=== PATIENT | female | born 1995 ===

== ENCOUNTER 2017-03-26 23:10 | Emergency (ER) | payer MEDICAID ==
[2017-03-26 23:24] VITALS: BP 112/69; PULSE 70; TEMP 98.1; O2SAT 100
--- NOTE | 2017-03-27 00:23 | C.PDOC ---
History Of Present Illness A 21 year old female presents to the emergency room with complaints of throat tightness since yesterday. Patient reports that she felt wheezing yesterday which resolved today. Patient attributes symptoms to eating almonds. Patient admits to having a history of allergies to almonds, but notes that the reaction is "not that bad." Patient took Loratadine today. Patient denies any shortness of breath, history of similar symptoms, rash, tongue swelling, lip swelling, or any other complaints. Time Seen by Provider: 03/26/17 23:33 Chief Complaint (Nursing): ENT Problem History Per: Patient History/Exam Limitations: None Onset/Duration Of Symptoms: Days (1) Current Symptoms Are (Timing): Still Present Quality (Ear): denies: Pain W/Touch, Redness, Swelling, Discharge, Foreign Body Quality (Mouth/Throat): Other (Throat tightness). denies: Tenderness, Swelling , Redness, Drainage Symptoms Have Been: Continuous Severity: Mild Past Medical History Reviewed: Historical Data, Nursing Documentation, Vital Signs Vital Signs: Last Vital Signs Temp 98.1 F 03/26/17 23:19 Pulse 70 03/26/17 23:19 Resp 20 03/27/17 01:01 BP 112/69 03/26/17 23:19 Pulse Ox 100 03/27/17 02:49 Family History: States: No Known Family Hx - Social History Hx Alcohol Use: No Hx Substance Use: No - Immunization History Hx Influenza Vaccination: No Hx Pneumococcal Vaccination: No Review Of Systems Except As Marked, All Systems Reviewed And Found Negative. Constitutional: Negative for: Fever, Chills ENT: Positive for: Other (Throat tightness). Negative for: Throat Pain Respiratory: Positive for: Wheezing (Yesterday. Resolved today.) Gastrointestinal: Negative for: Nausea, Vomiting, Diarrhea Skin: Negative for: Rash Physical Exam - Physical Exam Appears: Well, Non-toxic, No Acute Distress Skin: Normal Color, Warm, Dry, No Rash Head: Atraumatic, Normacephalic, No Swelling Eye(s): bilateral: Normal Inspection, PERRL, EOMI Ear(s): Bilateral: Normal Nose: Normal, No Discharge, No Tenderness Oral Mucosa: Moist Tongue: Normal Appearing, No Swelling Lips: Normal Appearing, No Swelling Throat: Normal, No Erythema, No Exudate Neck: Normal ROM, No Midline Cervical Tenderness, No Paracervical Tenderness, Supple Chest: Symmetrical, No Deformity, No Tenderness Cardiovascular: Rhythm Regular Respiratory: Normal Breath Sounds, No Rales, No Rhonchi, No Wheezing Gastrointestinal/Abdominal: Soft, No Tenderness, No Guarding, No Rebound Back: No CVA Tenderness, No Vertebral Tenderness Extremity: Normal ROM, No Tenderness Neurological/Psych: Oriented x3, Normal Speech, Normal Cognition ED Course And Treatment O2 Sat by Pulse Oximetry: 100 - Other Rad Soft Tissue X-ray X-Ray: Interpreted by Me, Viewed By Me Interpretation: NAD Progress Note: Patient is tolerating po. Case discussed with Dr. Lopez, who evaluated the X-ray and agrees with plan and discharge. On reassessment, patient is resting comfortably with no wheezing, chest pain, or retractions. Oxygen saturation and breath sounds have improved. Patient is alert and oriented x 3. Patient was advised to follow up with physician/clinic in 1-2 days and return to ED if symptoms worsen or persist. Disposition - Disposition Disposition: HOME/ ROUTINE Disposition Time: 00:22 Condition: STABLE Additional Instructions: Follow up with your primary medical doctor or clinic in 2-5 days for further evaluation. Take medications as prescribed. Return to the emergency department at any time if symptoms persist or worsen. Prescriptions: DiphenhydrAMINE [Benadryl] 25 mg PO Q6 #20 cap Epinephrine HCl [Epipen Auto-Injector] 0.3 mg IM ONCE PRN #1 unit PRN Reason: Anaphylaxis predniSONE [Prednisone] 40 mg PO DAILY #8 tab Instructions: General Allergic Reaction (ED) - Clinical Impression Clinical Impression: Allergic reaction - Scribe Statement The provider has reviewed the documentation as recorded by the Hamzah Aguayo Provider Scribe Attestation: All medical record entries made by the Ivetibkeshia were at my direction and personally dictated by me. I have reviewed the chart and agree that the record accurately reflects my personal performance of the history, physical exam, medical decision making, and the department course for this patient. I have also personally directed, reviewed, and agree with the discharge instructions and disposition.
[2017-03-27 01:02] VITALS: RESP 20
--- NOTE | 2017-03-27 08:23 | RAD ---
PROCEDURE: Radiographs of the neck (soft tissue). HISTORY: tightness COMPARISON: None. TECHNIQUE: Frontal and Lateral Radiographs of the neck, optimized for soft tissue visualization. FINDINGS: SOFT TISSUES: Unremarkable. No radiopaque foreign body seen. CERVICAL SPINE: Grossly unremarkable. OTHER FINDINGS: None. IMPRESSION: Unremarkable radiographs of the soft tissues of the neck.
== END 2017-03-27 01:01 | disposition home or self-care (01) ==
LOC: C.ER 23:10
DX: T78.40XA Allergy, unspecified, initial encounter (principal)

== ENCOUNTER 2018-06-24 17:24 | Emergency (ER) | payer MEDICAID, OTHER ==
[2018-06-24 17:34] VITALS: BMI 22.1
[2018-06-24 17:36] VITALS: BP 106/69; PULSE 83; RESP 18; TEMP 98.3; O2SAT 100
--- NOTE | 2018-06-24 17:55 | C.PDOC ---
History Of Present Illness 23-year-old female presents to the ED complaining of cloudy urine and urinary frequency for the past 6 days. Patient reports she is starting to develop back pain as well. She bought some urine test strips to test for UTI and the result was positive, prompting her to come to the ED for treatment. She felt feverish this morning and took 1 dose of aspirin. Patient denies prior history of UTIs. She denies any vaginal discharge, abdominal pain, nausea, vomiting, diarrhea, or hematuria. LMP was 06/01/18. Time Seen by Provider: 06/24/18 17:41 Chief Complaint (Nursing): Female Genitourinary History Per: Patient History/Exam Limitations: no limitations Onset/Duration Of Symptoms: Days Current Symptoms Are (Timing): Still Present Associated Symptoms: Urinary Symptoms Past Medical History Reviewed: Historical Data, Nursing Documentation, Vital Signs Vital Signs: Last Vital Signs Temp 98.3 F 06/24/18 17:34 Pulse 83 06/24/18 17:34 Resp 18 06/24/18 18:50 BP 106/69 06/24/18 17:34 Pulse Ox 100 06/24/18 18:40 - Medical History PMH: No Chronic Diseases Surgical History: No Surg Hx Family History: States: No Known Family Hx - Social History Hx Alcohol Use: No Hx Substance Use: No - Immunization History Hx Tetanus Toxoid Vaccination: Yes Hx Influenza Vaccination: Yes Hx Pneumococcal Vaccination: Yes Review Of Systems Constitutional: Positive for: Fever (subjective). Negative for: Chills Gastrointestinal: Negative for: Nausea, Vomiting, Abdominal Pain Genitourinary: Positive for: Frequency, Other (cloudy urine). Negative for: Dysuria, Incontinence, Hematuria, Vaginal Discharge, Vaginal Bleeding Musculoskeletal: Positive for: Back Pain Physical Exam - Physical Exam Appears: Well, Non-toxic, No Acute Distress Skin: Warm, Dry, No Rash Head: Atraumatic, Normacephalic Eye(s): bilateral: Normal Inspection Oral Mucosa: Moist Neck: Normal ROM Chest: Symmetrical Gastrointestinal/Abdominal: Soft, No Tenderness, No Distention, No Guarding Back: Normal Inspection, No Vertebral Tenderness Extremity: Bilateral: Atraumatic, Normal Color And Temperature, Normal ROM Pulses: Left Radial: Normal, Right Radial: Normal Neurological/Psych: Oriented x3, Normal Speech ED Course And Treatment O2 Sat by Pulse Oximetry: 100 (RA) Pulse Ox Interpretation: Normal Medical Decision Making Medical Decision Making: Impression: 23-year-old with urinary frequency and back pain Plan: * Urinalysis * Urine HCG Progress: Urine HCG negative. UA shows trace leuks, WBC, RBC, and occasional bacteria. Labs reviewed and results discussed with patient. Will treat with Cipro po. On re-evaluation patient is resting comfortably and remains afebrile, AAOx3, in no acute distress. Educated patient regarding diagnosis and treatment plan. Patient is stable for discharge home. Disposition Counseled Patient/Family Regarding: Diagnosis, Need For Followup, Rx Given - Disposition Referrals: Atul Stauffer MD [Staff Provider] - Disposition: HOME/ ROUTINE Disposition Time: 18:45 Condition: GOOD Additional Instructions: Take antibiotic twice daily and be sure to finish taking all of antibiotic. Drink plenty of fluids. If urine culture was performed, call [phone] for results in 2-3 days for results to confirm antibiotic is treating UTI well. Prescriptions: Ciprofloxacin [Cipro] 1 tab PO BID #10 tab Instructions: Urinary Tract Infection, Adult (DC) Forms: [employer] ([place]ayan) - POA Present On Arrival: None - Clinical Impression Clinical Impression: UTI (urinary tract infection) - PA / FLUID POWER MECHANIC / Resident Statement MD/DO has reviewed & agrees with the documentation as recorded. - Scribe Statement The provider has reviewed the documentation as recorded by the Scribe (Angelia Coon) All medical record entries made by the Scribe were at my direction and personally dictated by me. I have reviewed the chart and agree that the record accurately reflects my personal performance of the history, physical exam, medical decision making, and the department course for this patient. I have also personally directed, reviewed, and agree with the discharge instructions and disposition.
[2018-06-24 18:15] LABS: SQUAMOUS EPITHIAL 6 /hpf (0-5); URINE BACTERIA OCC (<OCC)
[2018-06-24 18:17] LABS: URINE COLOR YELLOW (YELLOW)
[2018-06-24 18:18] LABS: URINE BILIRUBIN NEGATIVE (NEGATIVE); URINE BLOOD NEGATIVE (NEGATIVE); URINE CLARITY Hazy (Clear); URINE GLUCOSE (UA) NEGATIVE (Normal); URINE LEUKOCYTE ESTERASE TRACE Leu/uL (Negative); URINE PROTEIN NEGATIVE (NEGATIVE); URINE UROBILINOGEN 0.2 mg/dL (0.2-1.0)
[2018-06-24 18:37] LABS: HCG,QUALITATIVE URINE NEGATIVE (NEGATIVE)
== END 2018-06-24 18:50 | disposition home or self-care (01) ==
LOC: C.ER 17:24
DX: N39.0 Urinary tract infection, site not specified (principal)

== ENCOUNTER 2018-07-08 22:42 | Emergency (ER) | payer MEDICAID ==
[2018-07-08 22:43] VITALS: BMI 22.1
[2018-07-08 23:23] VITALS: BP 118/73; PULSE 74; RESP 20; TEMP 98.1; O2SAT 99
[2018-07-08 23:42] LABS: HCG,QUALITATIVE URINE NEGATIVE (NEGATIVE)
[2018-07-08 23:46] LABS: SQUAMOUS EPITHIAL 9 /hpf (0-5); URINE BILIRUBIN NEGATIVE (NEGATIVE); URINE BLOOD NEGATIVE (NEGATIVE); URINE CLARITY Hazy (Clear); URINE COLOR Yellow (YELLOW); URINE GLUCOSE (UA) NORMAL (Normal); URINE LEUKOCYTE ESTERASE 3+ Leu/uL (Negative); URINE PROTEIN NEGATIVE (NEGATIVE); URINE UROBILINOGEN NORMAL mg/dL (0.2-1.0)
--- NOTE | 2018-07-09 00:15 | C.PDOC ---
History Of Present Illness 23 year old female presents to the ED c/o suprapubic pressure, urinary frequency , urgency and dysuria that started this morning. Patient was seen in the ED on 06/28/18 for similar complaints and was given cipro with relief at that time. Patient denies fever, chills, nausea, vomit, diarrhea. Time Seen by Provider: 07/08/18 23:34 Chief Complaint (Nursing): Female Genitourinary History Per: Patient History/Exam Limitations: no limitations Onset/Duration Of Symptoms: Hrs Current Symptoms Are (Timing): Still Present Quality Of Discomfort: Pressure Associated Symptoms: Urinary Symptoms. denies: Nausea, Vomiting, Diarrhea Alleviating Factors: None Recent travel outside of the [place]: No Additional History Per: Patient Abnormal Vaginal Bleeding: No Past Medical History Reviewed: Historical Data, Nursing Documentation, Vital Signs Vital Signs: Last Vital Signs Temp 98.1 F 07/08/18 23:20 Pulse 74 07/08/18 23:20 Resp 20 07/08/18 23:20 BP 118/73 07/08/18 23:20 Pulse Ox 99 07/09/18 00:28 - Medical History PMH: No Chronic Diseases Surgical History: No Surg Hx Family History: States: Unknown Family Hx - Social History Hx Alcohol Use: No Hx Substance Use: No - Immunization History Hx Tetanus Toxoid Vaccination: Yes Hx Influenza Vaccination: Yes Hx Pneumococcal Vaccination: Yes Review Of Systems Constitutional: Negative for: Fever, Chills Respiratory: Negative for: Cough, Shortness of Breath Gastrointestinal: Positive for: Abdominal Pain. Negative for: Nausea, Vomiting , Diarrhea Genitourinary: Positive for: Dysuria, Frequency. Negative for: Hematuria Musculoskeletal: Negative for: Back Pain Skin: Negative for: Rash Physical Exam - Physical Exam Appears: Non-toxic, No Acute Distress Skin: Normal Color, Warm, Dry Head: Atraumatic, Normacephalic Eye(s): bilateral: Normal Inspection Oral Mucosa: Moist Neck: Normal ROM, Supple Gastrointestinal/Abdominal: Soft, Tenderness (suprapubic), No Guarding, No Rebound Back: No CVA Tenderness Extremity: Normal ROM, No Tenderness, No Swelling Neurological/Psych: Oriented x3, Normal Speech Gait: Steady ED Course And Treatment O2 Sat by Pulse Oximetry: 99 (ON RA) Pulse Ox Interpretation: Normal Progress Note: Plan: - UA (+ UTI). - Macrobid 100 mg PO. - urine culture. Patient was advised to follow up with PMD. Disposition Counseled Patient/Family Regarding: Diagnosis, Need For Followup, Rx Given - Disposition Referrals: PMD, Private doctor [Other] Disposition: HOME/ ROUTINE Disposition Time: 00:13 Condition: STABLE Additional Instructions: Increase PO fluids Take medications as directed Return to ER if worse Prescriptions: Nitrofurantoin Macrocrystals [Macrobid] 1 cap PO BID #14 cap Instructions: Urinary Tract Infection, Adult (DC) Forms: [employer] (Kiswahili) - Clinical Impression Clinical Impression: UTI (urinary tract infection) - PA / REHAB DEPARTMENT MANAGER / Resident Statement MD/DO has reviewed & agrees with the documentation as recorded. - Scribe Statement The provider has reviewed the documentation as recorded by the Scribe Al Velasco All medical record entries made by the Ivetibkeshia were at my direction and personally dictated by me. I have reviewed the chart and agree that the record accurately reflects my personal performance of the history, physical exam, medical decision making, and the department course for this patient. I have also personally directed, reviewed, and agree with the discharge instructions and disposition.
== END 2018-07-09 00:26 | disposition home or self-care (01) ==
LOC: C.ER 22:42
DX: N39.0 Urinary tract infection, site not specified (principal)